=== PATIENT | female | born 1950 | race Asian ===

== ENCOUNTER → 2018-03-01 | Outpatient (CLI) | payer BC | END | disposition home or self-care (01) | LOC: RADPV 13:32 | PROVIDERS: ATTEND Internal Medicine | DX: I83.892 Varicose veins of left lower extremity with other complications (principal) | CPT/HCPCS: 93971 ==

== ENCOUNTER → 2018-12-12 | Outpatient (CLI) | payer BC | END | disposition home or self-care (01) | LOC: RADPV 10:41 | PROVIDERS: ATTEND Internal Medicine | DX: D25.9 Leiomyoma of uterus, unspecified (principal); N83.02 Follicular cyst of left ovary; N83.01 Follicular cyst of right ovary | CPT/HCPCS: 76856 ==

== ENCOUNTER 2019-08-16 17:05 | Emergency (ER) | payer BC ==
[~2019-08-16] VITALS: Ht 157.5 cm; Wt 54.5 kg
[2019-08-16] MEDS ORDERED: IOVERSOL 350 MG/ML 100 ML VIAL ONE (18:13)
[2019-08-16] MEDS ORDERED: SODIUM CHLORIDE 0.9% 100 ML ONE (18:13)
[2019-08-16 18:41] LABS: ANION GAP 6 mmol/L (8-16); CALCIUM, TOTAL 9.3 mg/dL (8.8-10.5); CARBON DIOXIDE 29 mmol/L (22-29); CHLORIDE 108 mmol/L (98-107); CREATININE 0.76 mg/dL (0.60-1.30); GLOMERULAR FILTR. RATE CALC > 60 mL/min (>60); GLUCOSE,RANDOM 112 mg/dL (70-110); POTASSIUM 4.8 mmol/L (3.5-5.1); SODIUM SERUM 143 mmol/L (136-145); UREA NITROGEN, BLOOD 12 mg/dL (7-18)
[2019-08-16 18:44] LABS: BASOPHILS % (AUTO) 0.4 % (0.0-2.0); EOSINOPHILS % (AUTO) 11.3 % (1.0-6.0); HEMATOCRIT 34.1 % (36-46); HEMOGLOBIN 11.5 g/dL (12.0-16.0); LYMPHOCYTES # (AUTO) 1.7 K/uL (1.0-4.8); LYMPHOCYTES % (AUTO) 33.3 % (22.0-44.0); MEAN CORPUSCULAR HEMOGLOBIN 29.5 pg (26.0-34.0); MEAN CORPUSCULAR HGB CONC 33.8 G/dL (31.0-37.0); MEAN CORPUSCULAR VOLUME 87 fL (80-100); MONOCYTES # (AUTO) 0.4 K/uL (0.1-1.0); MONOCYTES % (AUTO) 7.5 % (2.0-9.0); NEUTROPHILS # (AUTO) 2.4 K/uL (1.8-7.7); NEUTROPHILS % (AUTO) 47.5 % (40.0-70.0)
[2019-08-16 18:47] LABS: ALANINE AMINOTRANSFERASE 19 U/L (12-78); ALKALINE PHOSPHATASE 72 U/L (46-116); ASPARTATE AMINOTRANSFERASE 20 U/L (15-37); BILIRUBIN,TOTAL 0.5 mg/dL (0.1-1.0); TOTAL PROTEIN, SERUM 7.6 g/dL (6.4-8.2)
[2019-08-16 20:09] LABS: PLATELET COUNT (AUTO) 191 K/uL (150-450)
[2019-08-16] MEDS ORDERED: ALBUTEROL SULFATE HFA 90 MCG/PUFF 8 GM INHALER IH ONE (22:30)
[2019-08-16] MEDS ORDERED: PredniSONE 20 MG TABLET PO ONE (22:30)
[2019-08-16 23:11] VITALS: BP 135/78
== END 2019-08-16 23:18 | disposition home or self-care (01) ==
LOC: EMS 17:07
DX: J45.901 Unspecified asthma with (acute) exacerbation (principal); K76.89 Other specified diseases of liver; I10 Essential (primary) hypertension
CPT/HCPCS: 36415; 71046; 71260; 80053; 85025; 99284; J7050; J7512; Q9967; J3535

== ENCOUNTER 2019-10-02 20:52 | Emergency (ER) | payer BC, MEDICARE ==
[~2019-10-02] VITALS: Ht 162.6 cm; Wt 52.3 kg
[2019-10-02 23:22] VITALS: BP 165/85
[2019-10-03] MEDS ORDERED: ALBUTEROL SULFATE HFA 90 MCG/PUFF 8 GM INHALER IH ONE
== END 2019-10-03 00:01 | disposition home or self-care (01) ==
LOC: EMS 20:52
DX: J45.909 Unspecified asthma, uncomplicated (principal); I10 Essential (primary) hypertension
CPT/HCPCS: 94640; J3535

== ENCOUNTER 2020-08-09 12:00 | Emergency (ER) | payer MEDICARE, MEDICAID ==
[~2020-08-09] VITALS: Ht 160 cm; Wt 54.5 kg
[2020-08-09 12:04] VITALS: BP 150/76
[2020-08-09] MEDS ORDERED: IBUPROFEN 600 MG TABLET PO ONE (12:45)
== END 2020-08-09 14:06 | disposition home or self-care (01) ==
LOC: EMS 12:02
DX: M17.11 Unilateral primary osteoarthritis, right knee (principal); J45.909 Unspecified asthma, uncomplicated; E78.00 Pure hypercholesterolemia, unspecified; I10 Essential (primary) hypertension

== ENCOUNTER 2022-05-25 15:28 | Emergency (ER) | payer MEDICARE, MEDICAID ==
[~2022-05-25] VITALS: Ht 157.5 cm; Wt 81.8 kg
[2022-05-25] MEDS ORDERED: ATEN-187 PO (15:32)
[2022-05-25] MEDS ORDERED: HYDROGEN PEROXIDE 118 ML SOLUTION TP ONE (16:15)
[2022-05-25] MEDS ORDERED: OFLO5DRO21 AS (16:53)
[2022-05-25] MEDS ORDERED: AMOX500C2 PO (16:53)
[2022-05-25 17:13] VITALS: BP 123/69
== END 2022-05-25 17:22 | disposition home or self-care (01) ==
LOC: EMS 15:37
DX: H92.02 Otalgia, left ear (principal); T16.1XXA Foreign body in right ear, initial encounter; J45.909 Unspecified asthma, uncomplicated; E78.00 Pure hypercholesterolemia, unspecified; E78.5 Hyperlipidemia, unspecified; I10 Essential (primary) hypertension; X58.XXXA Exposure to other specified factors, initial encounter; Y93.89 Activity, other specified; Y92.89 Other specified places as the place of occurrence of the external cause; Y99.8 Other external cause status
CPT/HCPCS: 69200; 99284; Z7502; Z7610

== ENCOUNTER 2022-06-01 15:46 | Emergency (ER) | payer MEDICARE, MEDICAID ==
[~2022-06-01] VITALS: Ht 154.9 cm; Wt 56.8 kg
[~2022-06-01 15:46] MED LIST: AMOX500C2 PO; ATEN-187 PO; OFLO5DRO21 AS
[2022-06-01 15:52] VITALS: BP 142/78
== END 2022-06-01 16:07 | disposition left against medical advice (07) ==
LOC: EMS 15:46
DX: Z53.21 Procedure and treatment not carried out due to patient leaving prior to being seen by health care provider (principal)